=== PATIENT | male | born 1980 | race Caucasian/White ===

== ENCOUNTER → 2023-02-16 09:22 | Outpatient (CLI) | payer OTHER, SELFPAY ==
--- NOTE | 2023-02-16 | DI.RAD.S_ITS ---
PROCEDURE: XR KNEE RT 3V INDICATIONS: KNEE PAIN TECHNIQUE: 3 views of the knee were acquired. COMPARISON: None. FINDINGS: Bones: No fractures or dislocations. No suspicious bony lesions. Soft tissues: No joint effusion. No suspicious soft tissue calcifications. IMPRESSION: No acute bony abnormality. No significant degenerative change. Dictated by: Derrek Austin M.D. on 02/16/2023 at 10:14 Approved by: Derrek Austin M.D. on 02/16/2023 at 10:14
--- NOTE | 2023-02-16 | DI.RAD.S_ITS ---
PROCEDURE: XR KNEE LT 3V INDICATIONS: KNEE PAIN TECHNIQUE: 3 views of the knee were acquired. COMPARISON: None. FINDINGS: Bones: No fractures or dislocations. No suspicious bony lesions. Soft tissues: No joint effusion. No suspicious soft tissue calcifications. IMPRESSION: No acute bony abnormality. No significant degenerative change. Dictated by: Derrek Austin M.D. on 02/16/2023 at 10:13 Approved by: Derrek Austin M.D. on 02/16/2023 at 10:14
== END ==
PROVIDERS: Referring Provider Internal Medicine Cardiovascular Disease; Visit Provider Internal Medicine Cardiovascular Disease
DX: M25.561 Pain in right knee (principal); M25.562 Pain in left knee
CPT/HCPCS: 73562

== ENCOUNTER → 2023-04-29 10:01 | Outpatient (CLI) | payer OTHER, SELFPAY ==
--- NOTE | 2023-04-29 | DI.RAD.S_ITS ---
PROCEDURE: XR LUMBAR SPINE 2-3V INDICATIONS: low back pain TECHNIQUE: 3 views of the lumbar spine were acquired. COMPARISON: [facility], CT, CT LUMBAR SPINE WITHOUT CONTRAST, 05/22/2021, 15:17. FINDINGS: Bones: L5-S1 posterior fusion hardware with interbody spacer. Appearance is unchanged. No acute vertebral body height loss. Minor wedging of some lower thoracic vertebral bodies, unchanged. Soft tissues: No suspicious calcifications. IMPRESSION: Unchanged appearance lumbosacral fusion construct. No acute radiographic abnormality. If there is high concern for further derangement, consider MRI evaluation. Dictated by: Anish Barlow M.D. on 04/29/2023 at 11:29 Approved by: Anish Barlow M.D. on 04/29/2023 at 11:31
== END ==
PROVIDERS: Referring Provider Internal Medicine Cardiovascular Disease; Visit Provider Internal Medicine Cardiovascular Disease
DX: M54.50 Low back pain, unspecified (principal); Z98.1 Arthrodesis status
CPT/HCPCS: 72100